=== PATIENT | female | born 1990 | race Caucasian/White ===

== ENCOUNTER 2020-03-11 00:37 | Inpatient (IN) | payer BC ==
[2020-03-11] MEDS ORDERED: OXYTOCIN 10 UNIT/ML 1 ML VIAL IM PRN (01:10)
[2020-03-11] MEDS ORDERED: TERBUTALINE 1 MG/ML VIAL SQ PRN (01:10)
[2020-03-11] MEDS ORDERED: CARBOPROST TROMETHAMINE 250 MCG/ML 1 ML AMP IM PRN (01:10)
[2020-03-11] MEDS ORDERED: METHYLERGONOVINE 0.2 MG/ML 1 ML AMP IM PRN (01:10)
[2020-03-11] MEDS ORDERED: LACTATED RINGERS 1,000 ML IV SCH (01:15)
[2020-03-11] MEDS: LACTATED RINGERS 1,000 ML IV SCH ×3 (01:51→12:00)
[2020-03-11 01:54] LABS: Basophils # (A) 0.1 k/uL (0-0.2); Basophils % (A) 1 %; Eosinophils # (A) 0.1 k/uL (0-0.7); Eosinophils % (A) 1 %; HCT 35.9 % (34.0-46.0); HGB 11.7 gm/dL (11.4-16.0); Lymphocytes # (A) 2.8 k/uL (1.0-4.8); Lymphocytes % (A) 20 %; MCH 30.5 pg (25.0-35.0); MCHC 32.7 g/dL (31.0-37.0); MCV 93.3 fL (80.0-100.0); Mean Platelet Volume 9.2; Monocytes # (A) 0.8 k/uL (0-1.0); Monocytes % (A) 6 %; Neutrophils # (A) 9.7 k/uL (1.3-7.7); Neutrophils % (A) 71 %; Platelet Count 250 k/uL (150-450); RBC 3.85 m/uL (3.80-5.40); RDW 13.3 % (11.5-15.5); WBC 13.7 k/uL (3.8-10.6)
[2020-03-11] MEDS: OXYTOCIN 30 UNITS/500 ML NS 30 UNIT in SALINE 1 500ML.BAG IV SCH (03:21)
--- NOTE | 2020-03-11 08:36 | P.HPOB ---
History of Present Illness H&P Date: 03/11/20 Chief Complaint: IUP at 37 and 3/sevenths weeks, spontaneous rupture of memb chino This is a 29-year-old 1 para 0 at 37-3/7 weeks that presents to labor and delivery with complaints of spontaneous rupture of membranes around 11 PM. Patient presented to the hospital no uterine contractions were noted. Patient was noted to be 1 cm dilated at that time. Patient has been receiving routine care which has been Treated by a diagnosis of polyhydramnios. Patient had a ultrasound done almost one week ago revealing a KALPANA of 23, estimated weight of 7 lbs. 12 oz. Patient is been undergoing testing. On bloodwork patient has a blood type of O+, rubella status immune, hepatitis B surface antigen negative, HIV negative, GBS negative. Review of Systems Constitutional: Denies chills, Denies fatigue, Denies fever Ears, nose, mouth and throat: Denies headache Cardiovascular: Reports leg edema Respiratory: Denies dyspnea Gastrointestinal: Denies constipation, Denies diarrhea, Denies nausea, Denies vomiting Genitourinary: Reports Past Medical History Past Medical History: No Reported History History of Any Multi-Drug Resistant Organisms: None Reported Past Surgical History: Tonsillectomy Past Anesthesia/Blood Transfusion Reactions: No Reported Reaction Past Psychological History: No Psychological Hx Reported Smoking Status: Never smoker Past Drug Use History: None Reported - Past Family History Father Family Medical History: Hypertension Medications and Allergies Home Medications Medication Instructions Recorded Confirmed Type Pnv No.95/Ferrous Fum/Folic AC 1 tab PO DAILY 03/11/20 03/11/20 History [ Multivitamin Tablet] Allergies Allergy/AdvReac Type Severity Reaction Status Date / Time Sulfa (Sulfonamide Allergy Rash/Hives Verified 03/11/20 00:40 Antibiotics) Exam Osteopathic Statement: *. No significant issues noted on an osteopathic structural exam other than those noted in the History and Physical/Consult. 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 Results Result Diagrams: 03/11/20 01:43 Abnormal Lab Results - Last 24 Hours (Table) 03/11/20 Range/Units 01:43 WBC 13.7 H (3.8-10.6) k/uL Neutrophils # 9.7 H (1.3-7.7) k/uL Assessment and Plan (1) 37 weeks gestation of Current Visit: Yes Status: Acute Code(s): Z3A.37 - 37 WEEKS GESTATION OF SNOMED Code(s): 93069256 (2) Polyhydramnios Current Visit: Yes Status: Acute Code(s): O40.9XX0 - POLYHYDRAMNIOS, UNSP TRIMESTER, NOT APPLICABLE OR UNSP SNOMED Code(s): 86861817 (3) SROM (spontaneous rupture of membranes) Current Visit: Yes Status: Acute Code(s): NBL7303 - SNOMED Code(s): 349293427 Plan: Patient is admitted to labor and delivery for spontaneous rupture of membranes, Pitocin augmentation of labor is begun per hospital protocol. Patient is offered analgesia options including Stadol and epidural. She states she would eventually like an epidural. We will monitor closely.
[2020-03-11] MEDS: BUTORPHANOL 1 MG/ML 1 ML VIAL IV PRN (09:37)
[2020-03-11] MEDS ORDERED: ROPIVACAINE 100 MG, fentaNYL (PF) 200 MCG in SODIUM CHLORIDE 0.9% 76 ML EPIDURAL ONE (12:46)
[2020-03-11] MEDS ORDERED: AMPICILLIN 2,000 MG in SODIUM CHLORIDE 0.9% 100 ML IVPB STA (15:33)
[2020-03-11] MEDS: AMPICILLIN 1,000 MG in SODIUM CHLORIDE 0.9% 50 ML IVPB SCH (19:10)
[2020-03-11] MEDS ORDERED: SIMETHICONE 80 MG CHEWABLE PO PRN (20:26)
[2020-03-11] MEDS ORDERED: BENZOCAINE/MENTHOL SPRAY 1 GM/SPRAY AEROSOL TOPICAL PRN (20:26)
[2020-03-11] MEDS ORDERED: diphenhydrAMINE 50 MG CAP PO PRN (20:26)
[2020-03-11] MEDS ORDERED: HYDROCORTISONE 2.5% RECTAL CREAM 30 GM TUBE RECTAL PRN (20:26)
[2020-03-11] MEDS ORDERED: diphenhydrAMINE 50 MG/ML 1 ML VIAL IVP PRN ×2 (20:26)
[2020-03-11] MEDS ORDERED: HYDROcodone/APAP 5-325MG 1 EACH TAB PO PRN (20:26)
[2020-03-11] MEDS ORDERED: diphenhydrAMINE 25 MG CAP PO PRN (20:26)
[2020-03-11] MEDS ORDERED: ZOLPIDEM 5 MG TAB PO PRN (20:26)
[2020-03-11] MEDS ORDERED: ACETAMINOPHEN TAB 325 MG TAB PO PRN (20:26)
[2020-03-11] MEDS ORDERED: LANOLIN CREAM 5 GM TUBE TOPICAL PRN (20:26)
--- NOTE | 2020-03-11 20:26 | P.PROBDLV ---
Vaginal Delivery Note - . Vaginal Delivery Note: This is a 29-year-old 1 para 0 that presented to labor and delivery at 37-3/7 weeks with complaints of rupture of membranes around 2300, clear in nature. Patient denied contractions at that time. Rupture of membranes was confirmed by a sure here on labor and delivery. Patient was admitted to labor and delivery after a short period of time Pitocin augmentation of labor was begun. Patient made slow progress through labor eventually becoming uncomfortable and requesting epidural placement. Epidural was placed without difficulty. Patient was noted to be ruptured for approximate 16 hours and at that time ampicillin was started. Patient progressed to complete began pushing and had a normal spontaneous vaginal delivery of a viable male at 2002, weight of 7 lbs. 3 oz. with Apgars of 9 and 9 at one and 5 minutes respectively. After two-minute delayed the umbo cord was doubly clamped and cut. The placenta was then delivered spontaneously intact with a three-vessel cord being noted. On inspection the patient's vaginal vault a second-degree midline laceration was noted. This was repaired in the usual fashion with 3-0 Rapide. Hemostasis was appreciated. Rectal exam was performed and found to be normal in nature. Estimated blood loss for this delivery 300 cc. All counts are noted to be correct 2 Patient and tolerated delivery well and are resting comfortably.
[2020-03-11] MEDS ORDERED: OXYTOCIN 20 UNITS/1000 ML NS 1,000 ML IV SCH (20:30)
[2020-03-11] MEDS: LIDOCAINE 0.5% (PF) 5 MG/ML (50 ML SDV) SQ PRN (20:48)
[2020-03-11 23:33] LABS: Basophils % (A) 0 %; Eosinophils # (A) 0.1 k/uL (0-0.7); Eosinophils % (A) 0 %; HCT 22.7 % (34.0-46.0); Lymphocytes # (A) 2.4 k/uL (1.0-4.8); Lymphocytes % (A) 10 %; MCH 30.6 pg (25.0-35.0); MCHC 32.9 g/dL (31.0-37.0); MCV 92.9 fL (80.0-100.0); Mean Platelet Volume 9.4; Monocytes # (A) 1.1 k/uL (0-1.0); Monocytes % (A) 5 %; Neutrophils # (A) 20.3 k/uL (1.3-7.7); Neutrophils % (A) 84 %; Platelet Count 257 k/uL (150-450); RBC 2.44 m/uL (3.80-5.40); RDW 13.5 % (11.5-15.5); WBC 24.2 k/uL (3.8-10.6)
[2020-03-11 23:37] LABS: HGB 7.5 gm/dL (11.4-16.0)
--- NOTE | 2020-03-11 23:55 | P.OP ---
Date of Procedure: 03/11/20 Preoperative Diagnosis: hemorrhage, vaginal laceration Postoperative Diagnosis: Same Procedure(s) Performed: Exam under anesthesia, repair of vaginal laceration, hemorrhage Anesthesia: MAC Surgeon: Emmie Cesar Estimated Blood Loss (ml): 500 Urine output (ml): 100 Pathology: none sent Condition: stable Disposition: observation Indications for Procedure: 29-year-old 1 now para 1 status post normal spontaneous vaginal delivery during recovery was noted have increased vaginal bleeding on exam vaginal laceration was noted therefore bedside repair was attempted secondary to patient's discomfort patient was taken to the operating suite for further anesthesia Operative Findings: Vaginal artery noted to be bleeding on the right side of the vaginal vault, uterus was noted to be slightly boggy and enlarged after extraction of clots firm and below the umbilicus. Mejia catheter was placed at the end of the procedure draining clear yellow urine Description of Procedure: Patient was taken back to the operating suite where epidural anesthesia was administered. Patient had an epidural during her labor and it was not removed therefore medication was infused through the epidural catheter. In addition she was given some IV medication to relax. Patients vaginal vault was inspected vaginal artery was noted to be bleeding this was tied off with a timrln-vl-bjlke suture of 0 Vicryl. Additional site was noted to be bleeding therefore an additional luujdo-et-vkzva suture of 0 Vicryl was used to obtain hemostasis. Small peritoneal bleeder was noted therefore a ncmhsi-rf-phlim suture was used to obtain hemostasis. After 10 minutes of observation no further bleeding was noted. Mejia was placed at the end the procedure. Stat CBC was ordered. Patient was monitored and taken back to her delivery suite.
[2020-03-12] MEDS: LIDOCAINE 0.5% (PF) 5 MG/ML (50 ML SDV) SQ PRN (01:05)
[2020-03-12] MEDS: BUTORPHANOL 1 MG/ML 1 ML VIAL IV PRN (01:07)
[2020-03-12] MEDS ORDERED: miSOPROStoL 200 MCG TAB RECTAL ONE (01:30)
[2020-03-12] MEDS: PRENATAL VIT-IRON-FOLIC ACID 1 EACH CAP PO SCH (02:19)
[2020-03-12] MEDS: OXYTOCIN 30 UNITS/500 ML NS 30 UNIT in SALINE 1 500ML.BAG IV SCH (02:20)
[2020-03-12] MEDS: LACTATED RINGERS 1,000 ML IV SCH (02:20)
[2020-03-12] MEDS: AMPICILLIN 1,000 MG in SODIUM CHLORIDE 0.9% 50 ML IVPB SCH (02:21)
[2020-03-12 06:34] LABS: Basophils % (A) 0 %; Eosinophils % (A) 0 %; HCT 22.6 % (34.0-46.0); HGB 7.4 gm/dL (11.4-16.0); Lymphocytes # (A) 2.3 k/uL (1.0-4.8); Lymphocytes % (A) 13 %; MCH 30.1 pg (25.0-35.0); MCHC 32.6 g/dL (31.0-37.0); MCV 92.3 fL (80.0-100.0); Mean Platelet Volume 9.2; Monocytes # (A) 0.8 k/uL (0-1.0); Monocytes % (A) 5 %; Neutrophils # (A) 14.5 k/uL (1.3-7.7); Neutrophils % (A) 81 %; Platelet Count 178 k/uL (150-450); RBC 2.44 m/uL (3.80-5.40); RDW 13.8 % (11.5-15.5); WBC 17.9 k/uL (3.8-10.6)
--- NOTE | 2020-03-12 08:03 | P.PNOBGVD ---
Subjective - Subjective Principal diagnosis: PPD 1 , POD 1 repair of vaginal laeration Interval history: Patient overall did well last night. Vital signs remained stable. Lochia is minimal. Patient is currently bottle feeding but would like to start attempting to latch and breast-feeding today. CBC is reviewed with patient and her status post 1 unit of packed red blood cells, hemoglobin is stable. ( Hemoglobin at 2320, 7. 5 repeat at 547 7.4.) She states she is feeling better, but notes increased anxiety Patient reports: Reports appetite normal, Reports pain well controlled : doing well Objective - Latest Vital Signs Latest vital signs: Vital Signs Temp Pulse Pulse Resp BP BP Pulse Ox 03/12/20 04:00 98.1 F 113 H 18 122/74 99 03/12/20 00:48 98.0 F 107 H 16 110/61 100 03/12/20 00:38 97.7 F 114 H 16 109/62 03/12/20 00:30 97.4 F L 113 H 16 113/64 03/12/20 00:26 97.9 F 117 H 16 105/64 03/12/20 00:24 98.3 F 110 H 16 109/55 03/12/20 00:22 98.4 F 126 H 16 114/59 03/12/20 00:18 98.7 F 120 H 16 103/57 03/12/20 00:16 97.2 F L 117 H 16 105/57 03/12/20 00:00 97.9 F 116 H 16 104/58 03/11/20 22:14 98.7 F 101 H 16 104/62 03/11/20 21:44 110 H 16 101/66 03/11/20 21:14 98.5 F 110 H 16 101/66 03/11/20 20:59 108 H 16 124/62 03/11/20 20:44 98.2 F 107 H 16 133/69 03/11/20 20:29 98.5 F 99 16 147/69 03/11/20 20:14 97.6 F 110 H 16 162/69 Intake and Output 03/11/20 03/12/20 03/12/20 22:59 06:59 14:59 Intake Total 500 1620 Output Total 1100 Balance 500 520 Intake: IV 500 1000 Blood Product 620 Rc Pheresis As-3 Unit 310 [id number] Output: Urine 1100 - Exam Extremities: Present: normal, edema Abdomen: Present: normal appearance, soft Uterus: Present: normal, firm - Labs Labs: Abnormal Lab Results - Last 24 Hours (Table) 03/11/20 03/11/20 03/12/20 Range/Units 01:43 23:20 05:47 WBC 24.2 H 17.9 H (3.8-10.6) k/uL RBC 2.44 L 2.44 L (3.80-5.40) m/uL Hgb 7.5 L D 7.4 L (11.4-16.0) gm/dL Hct 22.7 L 22.6 L (34.0-46.0) % Neutrophils # 20.3 H 14.5 H (1.3-7.7) k/uL Monocytes # 1.1 H (0-1.0) k/uL Crossmatch See Detail Assessment and Plan (1) 37 weeks gestation of Current Visit: Yes Status: Acute Code(s): Z3A.37 - 37 WEEKS GESTATION OF SNOMED Code(s): 52699751 (2) Polyhydramnios Current Visit: Yes Status: Acute Code(s): O40.9XX0 - POLYHYDRAMNIOS, UNSP TRIMESTER, NOT APPLICABLE OR UNSP SNOMED Code(s): 71732917 (3) SROM (spontaneous rupture of membranes) Current Visit: Yes Status: Acute Code(s): FYQ5688 - SNOMED Code(s): 721470609 (4) Status post vaginal delivery Current Visit: Yes Status: Acute Code(s): YVV3008 - SNOMED Code(s): 446331502 (5) PPH ( hemorrhage) Current Visit: Yes Status: Acute Code(s): O72.1 - OTHER IMMEDIATE HEMORRHAGE SNOMED Code(s): 54202433 (6) Obstetric vaginal laceration Current Visit: Yes Status: Acute Code(s): O71.4 - OBSTETRIC HIGH VAGINAL LACERATION ALONE SNOMED Code(s): 040182054 Plan: Patient is overall doing well. Noted increased anxiety given hemorrhage and returned to the OR last night. Discussed stable vitals, stable hemoglobin. We will repeat CBC at noon. Plan discontinue Mejia increase ambulation today.
[2020-03-12] MEDS: SENNOSIDES-DOCUSATE SODIUM 1 EACH TAB PO SCH ×2 (08:26→20:12)
[2020-03-12 12:30] LABS: HCT 22.3 % (34.0-46.0); HGB 7.1 gm/dL (11.4-16.0); MCH 29.8 pg (25.0-35.0); MCV 93.2 fL (80.0-100.0); Mean Platelet Volume 8.9; Platelet Count 167 k/uL (150-450); RBC 2.39 m/uL (3.80-5.40); WBC 16.8 k/uL (3.8-10.6)
--- NOTE | 2020-03-12 13:06 | XR ---
EXAMINATION TYPE: XR pelvis AP view DATE OF EXAM: 03/12/2020 CLINICAL HISTORY: possible retained sponge vaginally TECHNIQUE: Single view the pelvis is submitted. FINDINGS: No visible retained sponge at this time within the pelvis. IMPRESSION: As above
[2020-03-12] MEDS: IBUPROFEN 600 MG TAB PO PRN ×2 (14:55→20:12)
[2020-03-13 01:16] VITALS: RESP 16
[2020-03-13 08:14] VITALS: BP 115/80; PULSE 108; TEMP 98.3
[2020-03-13] MEDS: PRENATAL VIT-IRON-FOLIC ACID 1 EACH CAP PO SCH (08:15)
[2020-03-13] MEDS: IBUPROFEN 600 MG TAB PO PRN ×2 (08:26→15:01)
[2020-03-13] MEDS: SENNOSIDES-DOCUSATE SODIUM 1 EACH TAB PO SCH (08:26)
[2020-03-13] MEDS: LACTATED RINGERS 1,000 ML IV SCH (08:41)
--- NOTE | 2020-03-13 10:33 | P.DS ---
Providers Date of admission: 03/11/20 01:00 Expected date of discharge: 03/13/20 Attending physician: Emmie Cesar Primary care physician: Stated None Plan - Discharge Summary New Discharge Prescriptions: No Action Pnv No.95/Ferrous Fum/Folic AC [ Multivitamin Tablet] 1 tab PO DAILY Discharge Medication List Pnv No.95/Ferrous Fum/Folic AC [ Multivitamin Tablet] 1 tab PO DAILY 03/11/20 [History]
--- NOTE | 2020-03-13 10:37 | P.DS ---
Providers Date of admission: 03/11/20 01:00 Expected date of discharge: 03/13/20 Attending physician: Emmie Cesar Primary care physician: Stated None - Discharge Diagnosis(es) (1) 37 weeks gestation of Current Visit: Yes Status: Acute (2) Obstetric vaginal laceration Current Visit: Yes Status: Acute (3) PPH ( hemorrhage) Current Visit: Yes Status: Acute (4) Polyhydramnios Current Visit: Yes Status: Acute (5) SROM (spontaneous rupture of membranes) Current Visit: Yes Status: Acute (6) Status post vaginal delivery Current Visit: Yes Status: Acute Hospital Course: This is a 29 year old 1 now para 1 woman who is admitted at 37-3/7 weeks gestation with spontaneous rupture of membranes not in labor. She was initiated on Pitocin induction of labor. She received an epidural anesthetic. She went on to deliver a liveborn male infant weighing 7 lbs. 3 oz. with Apgars of 9 at 1 minute and 9 at 5 minutes. The patient had a second-degree perineal laceration repaired at the time of delivery. This couple of hours postdelivery the patient was noted to have significant increase in vaginal bleeding. Exam under anesthetic revealed possible bleeding vaginal laceration. The patient was taken to the operating room for exam under anesthetic or she underwent repair of arterial bleeding from vaginal lacerations. The uterus is also somewhat atonic and was cleared bimanually of clot and debris. The patient's predelivery hemoglobin was 11.7. Postprocedure was 7.5. The patient was symptomatic and was transfused 1 unit of packed red blood cells. Her hemoglobin then remained stable at 7.4 on day #1 and was confirmed stable later in the day at 7.1. On day #2 patient reports feeling significantly better. She has minimal to moderate lochia. Her pain is well-controlled. She is ambulating and voiding without difficulty. She denies any dizziness her niece or near syncope. She is having bowel movements. She is breast-feeding successfully. She was therefore discharged home with routine instructions for care and follow-up. Patient Condition at Discharge: Good Plan - Discharge Summary New Discharge Prescriptions: No Action Pnv No.95/Ferrous Fum/Folic AC [ Multivitamin Tablet] 1 tab PO DAILY Discharge Medication List Pnv No.95/Ferrous Fum/Folic AC [ Multivitamin Tablet] 1 tab PO DAILY 03/11/20 [History] Follow up Appointment(s)/Referral(s): Emmie Cesar DO [Doctor of Osteopathic Medicine] - 2 Weeks Activity/Diet/Wound Care/Special Instructions: Follow-up in the office in 6 weeks . Call with any concerning signs or symptoms including heavy vaginal bleeding, severe abdominal pain, fever greater than 101, swelling or redness of the lower extremities, foul vaginal discharge, or signs of depression. Nothing in the vagina for 6 weeks after delivery, specifically no intercourse. May use [id number] ibuprofen and/or Tylenol as needed for pain. Discharge Disposition: HOME SELF-CARE
== END 2020-03-13 16:10 | disposition home or self-care (01) | DRG 768 ==
LOC: FBPOP 00:37 → 4FBP 01:00
PROVIDERS: ADMIT Obstetrics & Gynecology; ATTEND Obstetrics & Gynecology Obstetrics
PROC: 00HU33Z Insertion of Infusion Device into Spinal Canal, Percutaneous Approach (ICD-10-PCS; principal; 2020-03-11 23:00)
PROC: 0KQM0ZZ Repair Perineum Muscle, Open Approach (ICD-10-PCS; principal; 2020-03-11 23:00)
PROC: 3E0R3BZ Introduction of Anesthetic Agent into Spinal Canal, Percutaneous Approach (ICD-10-PCS; principal; 2020-03-11 23:00)
PROC: 10E0XZZ Delivery of Products of Conception, External Approach (ICD-10-PCS; principal; 2020-03-11 23:00)
PROC: 04Q Lower Arteries, Repair (ICD-10-PCS; 2020-03-12)
PROC: 30233N1 Transfusion of Nonautologous Red Blood Cells into Peripheral Vein, Percutaneous Approach (ICD-10-PCS; 2020-03-12)
DX: O42.02 Full-term premature rupture of membranes, onset of labor within 24 hours of rupture (principal); Z37.0 Single live birth; O72.1 Other immediate postpartum hemorrhage; O40.3XX0 Polyhydramnios, third trimester, not applicable or unspecified; O99.345 Other mental disorders complicating the puerperium; F41.9 Anxiety disorder, unspecified; O70.1 Second degree perineal laceration during delivery; Z3A.37 37 weeks gestation of pregnancy; Z79.899 Other long term (current) drug therapy; Z88.2 Allergy status to sulfonamides; Z82.49 Family history of ischemic heart disease and other diseases of the circulatory system
CPT/HCPCS: 59025; 72170; 84112; 85025; 85027; 86850; 86900; 86901; 86920; 99213

== ENCOUNTER 2025-02-12 11:13 | Day surgery (SDC) | payer BC ==
[~2025-02-12 11:13] MED LIST: HYDROmorphone 0.5 MG/0.5 ML SYRINGE IVP PRN; LIDOCAINE 1% (10MG/ML) FOR IV START INTRADERMA PRN; Pre Op ABX Message 1 EACH MISC MISCELLANE ONE; droPERidol 2.5 MG/ML VIAL IVP ONE
[2025-02-12] MEDS: IV FLUID CONTINUATION 1,000 ML IV ONE (11:58)
[2025-02-12] MEDS: SCOPOLAMINE 1 MG/72 HR PATCH TRANSDERM STA (12:02)
[2025-02-12] MEDS: DEXAMETHASONE SOD PHOSPHATE 4 MG/ML 1 ML VIAL IV ONE (12:26)
[2025-02-12] MEDS: LACTATED RINGERS 1,000 ML IV SCH (12:27)
[2025-02-12] MEDS: ONDANSETRON 4 MG/2 ML VIAL IVP ONE (12:27)
[2025-02-12] MEDS: MIDAZOLAM 2 MG/2 ML VIAL IV ONE (12:49)
[2025-02-12 12:52] LABS: Basophils # (A) 0.04 10*3/uL (0.00-0.10); Basophils % (A) 0.5 %; Eosinophils # (A) 0.03 10*3/uL (0.04-0.35); Eosinophils % (A) 0.4 %; HCT 40.7 % (37.2-46.3); HGB 14.0 g/dL (12.0-15.0); Lymphocytes # (A) 1.89 10*3/uL (0.90-5.00); Lymphocytes % (A) 23.2 %; MCH 31.6 pg (27.0-32.0); MCHC 34.4 g/dL (32.0-37.0); MCV 91.9 fL (80.0-97.0); Monocytes # (A) 0.48 10*3/uL (0.20-1.00); Monocytes % (A) 5.9 %; Neutrophils # (A) 5.64 10*3/uL (1.80-7.70); Neutrophils % (A) 69.4 %; Platelet Count 266 10*3/uL (140-440); RBC 4.43 10*6/uL (4.10-5.20); RDW 11.9 % (11.5-14.5); WBC 8.13 10*3/uL (4.50-10.00)
[2025-02-12] MEDS ORDERED: KETOROLAC 30 MG/ML 1 ML VIAL ONE (13:23)
[2025-02-12] MEDS ORDERED: HYDROmorphone (PF) 1 MG/ML ONE (13:23)
[2025-02-12] MEDS ORDERED: LIDOCAINE 1% INJ 10MG/ML (20 ML MDV) ONE (13:23)
[2025-02-12] MEDS ORDERED: MIDAZOLAM 2 MG/2 ML VIAL ONE (13:23)
[2025-02-12] MEDS ORDERED: fentaNYL (PF) 50 MCG/ML 2 ML AMP ONE (13:23)
[2025-02-12] MEDS ORDERED: PROPOFOL 10 MG/ML 20 ML VIAL IV ONE (13:23)
[2025-02-12] MEDS ORDERED: diphenhydrAMINE 50 MG/ML 1 ML VIAL ONE (13:23)
[2025-02-12] MEDS ORDERED: METHYLERGONOVINE 0.2 MG/ML 1 ML AMP ONE (13:23)
--- NOTE | 2025-02-12 14:06 | P.OP ---
Date of Procedure: 02/12/25 Preoperative Diagnosis: Missed AB Postoperative Diagnosis: Same Procedure(s) Performed: Suction dilation curettage with ultrasound guidance Anesthesia: MAC Surgeon: Emmie Cesar Estimated Blood Loss (ml): 25 IV fluids (ml): 400 Urine output (ml): 200 Pathology: other (Uterine contents) Condition: stable Disposition: PACU Indications for Procedure: Missed AB, patient presented for routine new OB visit at 13 and 5/7 weeks no heart tones were noted on ultrasound evaluation Operative Findings: Missed AB Description of Procedure: Patient was taken back to the operating suite where general anesthesia was obtained without difficulty by the anesthesia department. She was prepped and draped in normal sterile fashion in the dorsolithotomy position. A red rubber catheter was used to drain the bladder of clear yellow urine. During this time ultrasound was performed revealing no heart tones. Weighted speculum placed in the posterior vaginal vault the antilipid the cervix was visualized and grasped with a single-tooth tenaculum. The endocervical canal was then serially dilated. An 9 curved [place] curette was then advanced into the endometrial cavity and a moderate amount of products of conception were removed, ultrasound formed at this time revealing crown-rump remains. Additional passes were performed with a gentle sharp curettage, ultrasound once again performed with empty endometrial cavity. Additional pass placed with a suction curette no further products were appreciated. Final ultrasound performed with evidence of empty endometrial cavity, and no blood flow appreciated. Single-tooth tenaculum was taken off of the anterior lip of the cervix, hemostasis was appreciated. All instruments were removed from the patient's vaginal vault, all counts were noted correct x 2. Patient tolerated procedure well and was taken to the recovery in awake and stable condition. Methergine was given at the end of the procedure for uterine tone.
[2025-02-12 14:07] VITALS: TEMP 96.8
[2025-02-12 14:53] VITALS: BP 109/69; PULSE 101; RESP 15
--- NOTE | 2025-02-16 15:54 | US ---
EXAMINATION TYPE: US guide intraoperative DATE OF EXAM: 02/12/2025 2:01 PM COMPARISON: Pre Operative Images if available both CT/MRI or plain film CLINICAL INDICATION: Female, 34 years old with history of D C; TECHNIQUE: US guide intraoperative, multiple fluoroscopic images provided for procedure. FINDINGS: Ultrasound guided dilation and curettage by Dr. Cesar images demonstrate intrauterine gestational sac with subsequent removal. IMPRESSION: 1. No evidence for intraoperative complication. 2. Please see the operative/procedural note for further details. [facility], , 02/16/2025 3:52 PM
== END 2025-02-12 15:24 | disposition home or self-care (01) ==
LOC: OR 11:13
PROVIDERS: ATTEND Obstetrics & Gynecology Obstetrics
DX: O02.1 Missed abortion (principal); F41.9 Anxiety disorder, unspecified; Z88.2 Allergy status to sulfonamides
CPT/HCPCS: 59820; 88305; 85025; J2250; J1200; J1100; J2210; J2405; J2003; J3010; J1885; J1171; J2704